=== PATIENT | female | born 2000 | race Two or more races ===

== ENCOUNTER 2025-04-27 03:45 | Emergency (ER) | payer OTHER ==
[~2025-04-27] VITALS: Ht 160 cm; Wt 59.0 kg
[2025-04-27] MEDS ORDERED: PROZAC10 MG (04:02)
[2025-04-27] MEDS ORDERED: TRAZODONE HCL50 MG (04:03)
[2025-04-27] MEDS ORDERED: HYDROCODONE/CHLORPHEN P-STIREX 5 ML ML PO STA (05:48)
[2025-04-27] MEDS ORDERED: KETOROLAC TROMETHAMINE 10 MG TABLET PO STA (05:48)
[2025-04-27] MEDS ORDERED: ALBUTEROL SULFATE 3 ML/2.5 MG AMPUL.NEB IH STA (05:49)
[2025-04-27] MEDS ORDERED: METHYLPREDNISOLONE SOD SUCC 125 MG VIAL IM STA (05:54)
[2025-04-27] MEDS ORDERED: ONDANSETRON 4 MG TAB.RAPDIS PO STA (06:01)
[2025-04-27] MEDS ORDERED: ZYNCOF 20-400120 ML PO (07:32)
[2025-04-27] MEDS ORDERED: NASONEX 24HR AL17 ML NASAL (07:32)
[2025-04-27] MEDS ORDERED: DOLOGESIC-DF 51 EACH PO (07:32)
[2025-04-27] MEDS ORDERED: LEVALBUTER0.63 MG/3 IH (07:32)
== END 2025-04-27 07:52 | disposition home or self-care (01) ==
LOC: ER 03:45
DX: U07.1 COVID-19 (principal)